=== PATIENT | male | born 1970 | race African-American/Black ===

== ENCOUNTER 2018-06-23 10:39 | Emergency (ER) | payer SELFPAY ==
[2018-06-23 11:56] LABS: ADD MAN DIFF? NO
[2018-06-23 11:59] LABS: WHITE BLOOD COUNT 4.1 10^3/ul (4.8-10.8)
[2018-06-23 11:59] LABS: BASOPHILS % 0.7 % (0.0-2.0); EOSINOPHILS # 0.1 10^3/ul (0.0-0.5); EOSINOPHILS % 2.4 % (0.0-7.0); HEMATOCRIT 45.6 % (42.0-52.0); HEMOGLOBIN 15.5 g/dl (14.0-18.0); LYMPHOCYTES # 1.9 10^3/ul (0.8-2.9); LYMPHOCYTES % 44.8 % (15.0-51.0); MEAN CORPUSCULAR VOLUME 88.4 fl (82.0-101.0); MEAN PLATELET VOLUME 10.2 fl (7.4-10.4); MONOCYTE # 0.4 10^3/ul (0.3-0.9); MONOCYTES % 8.5 % (0.0-11.0); NEUTROPHIL # 1.8 10^3/ul (1.6-7.5); NEUTROPHILS % 43.4 % (39.0-77.0); PLATELET COUNT 200 10^3/UL (140-415); RED BLOOD COUNT 5.16 10^6/ul (4.70-6.10)
[2018-06-23] MEDS: HYDROmorphONE 1 MG/ML SYG IV (12:00)
[2018-06-23] MEDS: ONDANSETRON 4 MG INJ IV (12:00)
[2018-06-23 12:41] LABS: ALBUMIN/GLOBULIN RATIO 1.57; ANION GAP 11 (5-13); BILIRUBIN,TOTAL 0.8 mg/dl (0.2-1.3); Estimated GFR > 60 mL/min (>60)
[2018-06-23 12:42] LABS: ALANINE AMINOTRANSFERASE 26 IU/L (13-69); ALBUMIN 4.4 g/dl (3.3-4.9); ALKALINE PHOSPHATASE 63 IU/L (42-121); ASPARTATE AMINO TRANSFERASE 27 IU/L (15-46); BILIRUBIN,INDIRECT 0.8 mg/dl (0-1.1); BLOOD UREA NITROGEN 17 mg/dl (7-20); CALCIUM 9.9 mg/dl (8.4-10.2); CARBON DIOXIDE 27 mmol/L (21-31); CHLORIDE 103 mmol/L (97-110); CREATININE 0.92 mg/dl (0.61-1.24); GLUCOSE 94 mg/dl (70-220); POTASSIUM 4.2 mmol/L (3.5-5.1); SODIUM 141 mmol/L (135-144); TOTAL PROTEIN 7.2 g/dl (6.1-8.1)
[2018-06-23] MEDS: SOD CHLORIDE 0.9% 100 ML (13:23)
[2018-06-23] MEDS: IOHEXOL 300MG/ML 150 ML BTL (13:23)
== END 2018-06-23 14:32 | disposition home or self-care (01) ==
LOC: E/R 10:39
DX: K57.30 Diverticulosis of large intestine without perforation or abscess without bleeding (principal)
CPT/HCPCS: 36415; 74177; 80053; 85025; 96374; 96375; 99285-25